=== PATIENT | female | born 1980 | race Caucasian/White ===

== ENCOUNTER 2016-12-12 18:58 | Emergency (ER) | payer MEDICAID, OTHER ==
[2016-12-12 18:59] VITALS: BP 136/79; PULSE 84; RESP 16; TEMP 98.1; O2SAT 98
[2016-12-12] MEDS ORDERED: SODIUM CHLOR 0.9% 1000 ML INJ 1,000 ML IV SCH (19:41)
[2016-12-12] MEDS ORDERED: ONDANSETRON HCL 4 MG/2 ML VIAL IVP ONE (19:45)
[2016-12-12] MEDS ORDERED: MORPHINE SULFATE 4 MG/ML INJ IV PUSH ONE (19:45)
[2016-12-12] MEDS ORDERED: SODIUM CHLORIDE 0.9% FLUSH 10 ML FLUSH IV FLUSH PRN (19:45)
--- NOTE | 2016-12-12 19:50 | PD ---
HPI Chief Complaint: Abdominal Pain Time Seen by Provider: 19:43 Travel History International Travel<30 days: No Contact w/Intl Traveler<30days: No Traveled to known affect area: No History of Present Illness HPI 36-year-old female presents to the emergency department for evaluation of abdominal pain. Patient states her abdominal pain started 2 weeks ago, but worsened yesterday. She states it is diffuse, worse in the epigastric region. She does report vomiting times once yesterday. She states she had multiple episodes of watery diarrhea today. She states her diarrhea was black in color. She reports a fever yesterday, but no fevers today. She states her temperature was 100.9 yesterday. She states she is currently nauseated. She denies any chest pain or shortness of breath. She does state that she saw her physician and was prescribed Zofran. She states she was diagnosed with a viral syndrome. Patient reports no chronic medical problems. She takes no other medications. She reports history of tubal ligation and C-sections. No other surgeries. She denies any chronic abdominal problems. Patient does report urinary symptoms including dysuria as well as. She denies any abnormal vaginal discharge or risk of STDs. PFSH Past Medical History ?: Not Social History Alcohol Use: No Tobacco Use: No Substance Use: No Allergies-Medications (Allergen,Severity, Reaction): Coded Allergies: No Known Allergies (Unverified , 12/12/16) Reported Meds & Prescriptions Reported Meds & Active Scripts Active Reported Clonidine (Clonidine HCl) 0.1 Mg Tab 0.1 Mg PO BID Lisinopril 5 Mg Tab 5 Mg PO DAILY Review of Systems Except as stated in HPI: all other systems reviewed are Neg Physical Exam Narrative GENERAL: Well-nourished, well-developed female patient, ambulatory. Afebrile. SKIN: Focused skin assessment warm/dry. HEAD: Normocephalic. Atraumatic. EYES: No scleral icterus. No injection or drainage. NECK: Supple, trachea midline. No JVD or lymphadenopathy. CARDIOVASCULAR: Regular rate and rhythm without murmurs, gallops, or rubs. RESPIRATORY: Breath sounds equal bilaterally. No accessory muscle use. Lungs sounds are clear to auscultation. GASTROINTESTINAL: Abdomen soft and nondistended. Patient has diffuse tenderness to palpation, worse in the epigastric region. MUSCULOSKELETAL: No cyanosis, or edema. BACK: Nontender without obvious deformity. No CVA tenderness. RECTAL EXAM: No masses or tenderness, stool is brown. Hemoccult is negative. This was done with the nurse at bedside. Data Data Last Documented VS Vital Signs Date Time Temp Pulse Resp B/P Pulse Ox O2 Delivery O2 Flow Rate FiO2 12/12/16 20:08 99 Room Air 12/12/16 18:59 98.1 84 16 136/79 Orders Complete Blood Count With Diff (12/12/16 19:41) Comprehensive Metabolic Panel (12/12/16 19:41) Lipase (12/12/16 19:41) Urinalysis - C+S If Indicated (12/12/16 19:41) Ct Abd/Pel W Iv Contrast(Rout) (12/12/16 19:41) Iv Access Insert/Monitor (12/12/16 19:41) Ecg Monitoring (12/12/16 19:41) Oximetry (12/12/16 19:41) Ondansetron Inj (Zofran Inj) (12/12/16 19:45) Sodium Chlor 0.9% 1000 Ml Inj (Ns 1000 M (12/12/16 19:41) Sodium Chloride 0.9% Flush (Ns Flush) (12/12/16 19:45) Ed Urine Pregnancytest Poc (12/12/16 19:41) Morphine Inj (Morphine Inj) (12/12/16 19:45) Iohexol 350 Inj (Omnipaque 350 Inj) (12/12/16 21:13) Potassium Chlor 10 Meq Premix (Kcl 10 Me (12/12/16 21:30) Potassium Chloride (Kcl) (12/12/16 22:00) Labs Laboratory Tests Test 12/12/16 20:00 White Blood Count 4.6 TH/MM3 Red Blood Count 4.49 MIL/MM3 Hemoglobin 11.9 GM/DL Hematocrit 36.4 % Mean Corpuscular Volume 81.0 FL Mean Corpuscular Hemoglobin 26.5 PG Mean Corpuscular Hemoglobin 32.8 % Concent Red Cell Distribution Width 15.6 % Platelet Count 182 TH/MM3 Mean Platelet Volume 9.2 FL Neutrophils (%) (Auto) 37.6 % Lymphocytes (%) (Auto) 48.9 % Monocytes (%) (Auto) 12.4 % Eosinophils (%) (Auto) 0.6 % Basophils (%) (Auto) 0.5 % Neutrophils # (Auto) 1.7 TH/MM3 Lymphocytes # (Auto) 2.2 TH/MM3 Monocytes # (Auto) 0.6 TH/MM3 Eosinophils # (Auto) 0.0 TH/MM3 Basophils # (Auto) 0.0 TH/MM3 CBC Comment DIFF FINAL Differential Comment Urine Color YELLOW Urine Turbidity HAZY Urine pH 6.0 Urine Specific [place] 1.036 Urine Protein 30 mg/dL Urine Glucose (UA) NEG mg/dL Urine Ketones NEG mg/dL Urine Occult Blood NEG Urine Nitrite NEG Urine Bilirubin NEG Urine Urobilinogen LESS THAN 2.0 MG/DL Urine Leukocyte Esterase NEG Urine RBC 1 /hpf Urine WBC 2 /hpf Urine Squamous Epithelial 2 /hpf Cells Urine Calcium Oxalate Crystals RARE /hpf Urine Amorphous Sediment RARE Urine Bacteria OCC /hpf Urine Mucus MANY /lpf Microscopic Urinalysis Comment CULT NOT INDICATED Sodium Level 142 MEQ/L Potassium Level 2.9 MEQ/L Chloride Level 109 MEQ/L Carbon Dioxide Level 23.4 MEQ/L Anion Gap 10 MEQ/L Blood Urea Nitrogen 19 MG/DL Creatinine 0.88 MG/DL Estimat Glomerular Filtration 73 ML/MIN Rate Random Glucose 85 MG/DL Calcium Level 8.5 MG/DL Total Bilirubin 0.2 MG/DL Aspartate Amino Transf 19 U/L (AST/SGOT) Alanine Aminotransferase 26 U/L (ALT/SGPT) Alkaline Phosphatase 42 U/L Total Protein 8.3 GM/DL Albumin 4.3 GM/DL Lipase 175 U/L [facility] Medical Decision Making Medical Screen Exam Complete: Yes Emergency Medical Condition: Yes Medical Record Reviewed: Yes Interpretation(s) Last Impressions Abdomen/Pelvis CT 12/12/161940 Signed Impressions: Service Date/Time: Monday, December 12, 2016 21:10 - CONCLUSION: 1. Moderate fluid in the colon. 2. The ovaries appear somewhat prominent with a collapsing cyst on the left side. Johnny Briggs MD Differential Diagnosis Pancreatitis versus cholecystitis versus diverticulitis versus urinary tract infection Narrative Course 36-year-old female presents to the emergency department for evaluation of abdominal pain for 2 weeks, but worsened yesterday. CBC, CMP, lipase, UA, urine test are ordered and pending. CT abdomen/pelvis with IV contrast is ordered and pending. Patient is given morphine 4 mg IV, Zofran 4 mg IV, normal saline 1 L IV bolus. CBC shows no acute abnormalities. CMP shows hypokalemia at 2.9. Lipase is 175. UA shows no acute infection. UPT is negative. CT abdomen/pelvis shows moderate fluid in the colon. 2. The ovaries appear somewhat prominent with a collapsing cyst on the left side. Patient is given potassium 10 meq IV and 40meq by mouth. I discussed the findings with my attending physician, Dr. Akhtar, who agrees with plan and disposition. Symptoms and findings are most consistent with viral gastroenteritis. She'll be discharged with a short-term course of Lortab for pain. She is to follow-up with her primary care physician. She is to return for any acute worsening of symptoms. She verbalizes agreement and understanding. The patient was discharged in stable condition with instructions, including return instructions and follow up instructions. [facility] Point of Care Internal Pos. & Neg. Controls: Passed Fecal Specimen Occult Blood: Negative Diagnosis Primary Impression: Gastroenteritis Referrals: Primary Care Physician call for appointment Patient Instructions: Gastroenteritis (ED), General Instructions Departure Forms: Tests/Procedures, Work Release Enter return to work date: December 14, 2016 Additional Instructions: Continue Zofran as directed as needed for nausea/vomiting. Take Lortab as directed as needed for pain. Caution this can make you drowsy so do not drive after taking. Take Imodium as directed as needed for diarrhea. Follow-up with your primary care physician. Return to the emergency department for any acute worsening of symptoms. Med/Other Pt SpecificInfo: Prescription(s) given Scripts Loperamide (Imodium A-D)2 Mg Cap2 Mg PO Q6H PRN (DIARRHEA) #16 CAP Ref 0 Prov:Judy Moncada 12/12/16 Hydrocodone-Acetaminophen (Lortab)5-325 Mg Tab1 Tab PO Q6H PRN (PAIN) #10 TAB Ref 0 Prov:Ailyn Akhtar MD 12/12/16 Disposition: 01 DISCHARGE HOME Condition: Stable Judy Moncada December 12, 2016 19:50
[2016-12-12 20:08] VITALS: O2SAT 99
[2016-12-12 20:24] LABS: AUTOMATED NEUTROPHIL # 1.7 TH/MM3 (1.8-7.7); BASOPHIL % 0.5 % (0.0-2.0); EOSINOPHIL % 0.6 % (0.0-4.0); HEMATOCRIT 36.4 % (35.0-46.0); HEMO FLAGS DIFF FINAL; LYMPH % 48.9 % (9.0-44.0); LYMPHOCYTE # 2.2 TH/MM3 (1.0-4.8); MEAN CORPUSCULAR HEMOGLOBIN 26.5 PG (27.0-34.0); MEAN CORPUSCULAR HGB CONC 32.8 % (32.0-36.0); MONO % 12.4 % (0.0-8.0); NEUT % 37.6 % (16.0-70.0); PLATELET COUNT 182 TH/MM3 (150-450); RED BLOOD COUNT 4.49 MIL/MM3 (4.00-5.30); RED CELL DISTRIBUTION WIDTH 15.6 % (11.6-17.2); WHITE BLOOD COUNT 4.6 TH/MM3 (4.0-11.0)
[2016-12-12 20:26] LABS: BACTERIA, URINE OCC /hpf; BLOOD, URINE NEG (NEG); CALCIUM OXALATE CRYSTALS,URINE RARE /hpf; COMMENT (UR) CULT NOT INDICATED; CULTURE IF INDICATED CULT NOT INDICATED; GLUCOSE,URINE NEG (NEG); KETONE, URINE NEG (NEG); MUCUS URINE MANY /lpf (OCC); NITRITE,URINE NEG (NEG); SQUAMOUS EPITHELIAL CELL URINE 2 /hpf (0-5); URINE COLOR YELLOW (YELLW/STRAW)
[2016-12-12 20:53] LABS: ALKALINE PHOSPHATASE 42 U/L (45-117); ALT (GPT) 26 U/L (10-53); ANION GAP 10 MEQ/L (5-15); AST (GOT) 19 U/L (15-37); BICARBONATE 23.4 MEQ/L (21.0-32.0); BLOOD UREA NITROGEN 19 MG/DL (7-18); CHLORIDE 109 MEQ/L (98-107); GLOMERULAR FILTRATION RATE 73 ML/MIN (>89); SODIUM (NA) 142 MEQ/L (136-145); TOTAL BILIRUBIN ADULT 0.2 MG/DL (0.2-1.0)
[2016-12-12] MEDS ORDERED: CLON0.1T PO (20:57)
[2016-12-12] MEDS ORDERED: LISI-519 PO (20:57)
[2016-12-12 21:05] LABS: POTASSIUM 2.9 MEQ/L (3.5-5.1)
[2016-12-12] MEDS ORDERED: IOHEXOL 350 MG/ML 10 ML VIAL (for RAD DIAG) IV ONE (21:13)
[2016-12-12] MEDS ORDERED: POTASSIUM CHLOR 10 MEQ PREMIX 100 ML IV ONE (21:30)
--- NOTE | 2016-12-12 21:48 | RADRPT ---
EXAM DATE/TIME: 12/12/2016 21:10 [facility] COMPARISON: No previous studies available for comparison. INDICATIONS : Abdomen pain past 3 weeks. IV CONTRAST: 80 cc Omnipaque 350 (iohexol) IV ORAL CONTRAST: No oral contrast ingested. RADIATION DOSE: 5.21 CTDIvol (mGy) MEDICAL HISTORY : None SURGICAL HISTORY : None. ENCOUNTER: Initial ACUITY: 3 weeks PAIN SCALE: 5/10 LOCATION: Bilateral abdomen TECHNIQUE: Volumetric scanning of the abdomen and pelvis was performed. Using automated exposure control and ad justment of the mA and/or kV according to patient size, radiation dose was kept as low as reasonably achievable to obtain optimal diagnostic quality images. FINDINGS: LOWER LUNGS: The visualized lower lungs are clear. LIVER: Homogeneous density. There is a 1.8 cm cyst at the right lobe. There is no dilation of the biliary t ree. No calcified gallstones. SPLEEN: Normal size without lesion. PANCREAS: Within normal limits. KIDNEYS: Normal in size and shape. There is no mass, stone or hydronephrosis. ADRENAL GLANDS: Within normal limits. VASCULAR: There is no aortic aneurysm. BOWEL/MESENTERY: There is a moderate amount of fluid in the colon. There is no free intraperitoneal air or fluid. ABDOMINAL WALL: Within normal limits. RETROPERITONEUM: There is no lymphadenopathy. BLADDER: No wall thickening or mass. REPRODUCTIVE: Metallic densities are seen in the fallopian tubes. The ovaries appear prominent measuring 4 cm. Ther e appears to be a collapsing cyst/follicle on the left side. INGUINAL: There is no lymphadenopathy or hernia. MUSCULOSKELETAL: Within normal limits for patient age. CONCLUSION: 1. Moderate fluid in the colon. 2. The ovaries appear somewhat prominent with a collapsing cyst on the left side. Johnny Briggs MD on December 12, 2016 at 21:42 Board Certified Radiologist. This report was verified electronically.
[2016-12-12] MEDS ORDERED: HYDR-3533 PO (21:59)
[2016-12-12] MEDS ORDERED: POTASSIUM CHLORIDE 20 MEQ CONTROLLED RELEASE TAB PO ONE (22:00)
[2016-12-12] MEDS ORDERED: LOPE7.5C PO (22:01)
[2016-12-12 23:06] VITALS: BP 124/78; PULSE 69; RESP 16; O2SAT 100
== END 2016-12-12 23:25 | disposition home or self-care (01) ==
LOC: NEPC 18:58
DX: K52.9 Noninfective gastroenteritis and colitis, unspecified (principal); R30.0 Dysuria
CPT/HCPCS: 74177; 80053; 81001; 83690; 84703; 85025; 96361; 96365; 96375; 99284; J2270; J2405; J3480; J7030; Q9967